=== PATIENT | female | born 2000 | race Caucasian/White ===

== ENCOUNTER 2019-06-21 22:17 | Emergency (ER) | payer OTHER ==
--- NOTE | 2019-06-21 23:07 | ER Document Report ---
ED Medical Screen (RME) - General Chief Complaint: Abdominal Pain Stated Complaint: VAGINAL BLEEDING Time Seen by Provider: 06/21/19 23:06 Mode of Arrival: Ambulatory Information source: Patient Notes: Otherwise healthy 18-year-old female presenting with vaginal bleeding in the setting of possible . Patient reports had a positive test back in April, she has not seen any medical provider for this. Patient reports she has been having vaginal bleeding for the last 3 weeks with increased bleeding tonight after she had intercourse. Patient denies any low abdominal cramping and denies the passage of any clots. Patient is a G1, P0. I have greeted and performed a rapid initial assessment of this patient. A comprehensive ED assessment and evaluation of the patient, analysis of test results and completion of the medical decision making process will be conducted by additional ED providers. I have specifically instructed the patient or family members with the patient to immediately return to any nursing staff should anything change in the patient's condition or with their chief complaint. This medical record was dictated with voice recognizing software. There may be grammatical, syntax errors that are unintended. TRAVEL OUTSIDE OF THE [place] IN LAST 30 DAYS: No Past Medical History - Social History Chew tobacco use (# tins/day): No Frequency of alcohol use: Rare Drug Abuse: None Physical Exam - Vital signs Vitals: Temp Pulse Resp BP Pulse Ox 98.6 F 91 20 126/84 H 99 06/21/19 22:24 06/21/19 22:24 06/21/19 22:24 06/21/19 22:24 06/21/19 22:24 Course - Vital Signs Vital signs: Temp Pulse Resp BP Pulse Ox 98.6 F 91 20 126/84 H 99 06/21/19 22:30 06/21/19 22:30 06/21/19 22:30 06/21/19 22:30 06/21/19 22:30
[2019-06-21 23:51] LABS: ABSOLUTE BASOPHILS # (AUTO) 0.1 10^3/uL (0.0-0.2); ABSOLUTE EOSINOPHILS # (AUTO) 0.1 10^3/uL (0.0-0.6); ABSOLUTE LYMPHOCYTES (AUTO) 3.3 10^3/uL (0.5-4.7); ABSOLUTE MONOCYTES (AUTO) 0.9 10^3/uL (0.1-1.4); ABSOLUTE NEUT (AUTO) 6.9 10^3/uL (1.7-8.2); BASOPHILS % (AUTO) 0.8 % (0-2); EOSINOPHILS % (AUTO) 1.1 % (0-6); HEMATOCRIT 44.6 % (36.0-47.0); HEMOGLOBIN 15.4 g/dL (12.0-15.5); LYMPHOCYTES % (AUTO) 29.1 % (13-45); MEAN CORPUSCULAR HGB CONC 34.5 g/dL (32.0-36.0); MEAN CORPUSCULAR VOLUME 90 fl (80-97); MONOCYTES % (AUTO) 7.8 % (3-13); PLATELET COUNT 150 10^3/uL (150-450); RED BLOOD COUNT 4.96 10^6/uL (3.72-5.28); RED CELL DISTRIBUTION WIDTH 13.2 % (11.5-14.0); SEGMENTED NEUTROPHILS % (AUTO) 61.2 % (42-78); TOTAL CELLS COUNTED % (AUTO) 100 %; WHITE BLOOD COUNT 11.2 10^3/uL (4.0-10.5)
[2019-06-22 00:06] LABS: ALBUMIN 4.6 g/dL (3.5-5.0); ALKALINE PHOSPHATASE 88 U/L (38-126); ANION GAP 9 (5-19); ASPARTATE AMINO TRANSFERASE 24 U/L (14-36); BILIRUBIN,DIRECT 0.1 mg/dL (0.0-0.4); BILIRUBIN,TOTAL 0.6 mg/dL (0.2-1.3); BLOOD UREA NITROGEN 10 mg/dL (7-20); CALCIUM 10.2 mg/dL (8.4-10.2); CARBON DIOXIDE 26 mmol/L (22-30); CHLORIDE 106 mmol/L (98-107); GLUCOSE 90 mg/dL (75-110); POTASSIUM 4.1 mmol/L (3.6-5.0); TOTAL PROTEIN 7.4 g/dL (6.3-8.2)
[2019-06-22 00:07] LABS: APPEARANCE,URINE CLEAR; BILIRUBIN,URINE NEGATIVE (NEGATIVE); COLOR,URINE YELLOW; GLUCOSE, URINE NEGATIVE (NEGATIVE); KETONES,URINE NEGATIVE (NEGATIVE); LEUKOCYTE ESTERASE,URINE NEGATIVE (NEGATIVE); NITRITE,URINE NEGATIVE (NEGATIVE); PROTEIN,URINE NEGATIVE (NEGATIVE); URINE SPECIFIC GRAVITY 1.017; UROBILINOGEN,URINE NEGATIVE mg/dL (<2.0)
--- NOTE | 2019-06-22 02:20 | RADIOLOGY REPORT (SQ) ---
US PELVIS EXAM DATE: 06/22/2019 12:36 AM [employer] [employer]OR HISTORY: Pelvic pain. COMPARISON: None. TECHNIQUE: Grayscale, color Doppler, and spectral Doppler ultrasound images of the pelvis were obtained. FINDINGS: The uterus is anteverted and measures 9 cm in length. There is a gestational sac which measures 2.6 cm. No yolk sac or pole is seen. There is an adjacent 9 mm hypoechoic structure suggestive of subchorionic hematoma. The cervix measures 3 cm in length. IMPRESSION: 1. Intrauterine gestational sac corresponding to 7 weeks 4 days. No yolk sac or pole is seen at this time. Findings may represent early . Recommend short-term follow-up ultrasound imaging. 2. Adjacent hypoechoic structure may represent subchorionic hematoma.
--- NOTE | 2019-06-22 03:24 | ER Document Report ---
ED General - General Chief Complaint: Abdominal Pain Stated Complaint: VAGINAL BLEEDING Time Seen by Provider: 06/21/19 23:06 Mode of Arrival: Ambulatory TRAVEL OUTSIDE OF THE [place] IN LAST 30 DAYS: No - HPI Onset: Other - over the last 3 weeks Onset/Duration: Gradual Quality of pain: No pain Severity: Moderate Pain Level: Denies Associated symptoms: None Exacerbated by: Denies Relieved by: Denies Similar symptoms previously: No Recently seen / treated by doctor: No Notes: 18 year old female with no known PMH here for 3 weeks of vaginal bleeding. The patient says her last period was at the end of March. The patient figured she was having a miscarriage and that it would pass after 2 weeks but she continues to bleed. The patient has some crampy abdominal pains but nothing too intense. The patient denies fevers, chills, sweats, urinary symptoms. The patient has had no care to date. Past Medical History - General Information source: Patient - Social History Smoking Status: Current Every Day Smoker Chew tobacco use (# tins/day): No Frequency of alcohol use: Rare Drug Abuse: None Family History: Reviewed & Not Pertinent Patient has suicidal ideation: No Patient has homicidal ideation: No - Medical History Medical History: Negative - Past Medical History Cardiac Medical History: Reports: None Pulmonary Medical History: Reports: None EENT Medical History: Reports: None Neurological Medical History: Reports: None Endocrine Medical History: Reports: None Renal/ Medical History: Reports: Other - vaginal bleeding for 3 weeks, possibly GI Medical History: Reports: None Musculoskeletal Medical History: Reports None Skin Medical History: Reports None Psychiatric Medical History: Reports: None Infectious Medical History: Reports: None Surgical Hx: Negative Review of Systems - Review of Systems Constitutional: No symptoms reported EENT: No symptoms reported Cardiovascular: No symptoms reported Respiratory: No symptoms reported Gastrointestinal: No symptoms reported Genitourinary: No symptoms reported Female Genitourinary: Vaginal bleeding Musculoskeletal: No symptoms reported Skin: No symptoms reported Hematologic/Lymphatic: No symptoms reported Neurological/Psychological: No symptoms reported Physical Exam - Vital signs Vitals: Temp Pulse Resp BP Pulse Ox 98.6 F 91 20 126/84 H 99 06/21/19 22:24 06/21/19 22:24 06/21/19 22:24 06/21/19 22:24 06/21/19 22:24 - Notes Notes: GENERAL: Well-appearing, well-nourished and in no acute distress. HEAD: Atraumatic, normocephalic. EYES: Pupils equal round and reactive to light, extraocular movements intact, sclera anicteric, conjunctiva are normal. ENT: Nares patent, oropharynx clear without exudates. Moist mucous membranes. NECK: Normal range of motion, supple without lymphadenopathy or JVD. LUNGS: Breath sounds clear to auscultation bilaterally and equal. No wheezes rales or rhonchi. HEART: Regular rate and rhythm without murmurs, rubs or gallops. ABDOMEN: Soft, nontender, normoactive bowel sounds. No guarding, no rebound. No masses appreciated. : Normal External Pelvic Exam. Bleeding from cervix noted. No CMT. No Adnexal Tenderness. EXTREMITIES: Normal range of motion, no pitting or edema. No clubbing or cyanosis. NEUROLOGICAL: Cranial nerves II through XII grossly intact. Normal speech, normal gait. PSYCH: Normal mood, normal affect. SKIN: Warm, Dry, normal turgor, no rashes or lesions noted. Course - Re-evaluation Re-evalutation: 06/22/19 04:22 The patient is at 7 weeks and 4 days by US. She has a beta HCG of 8403. Patient required Rhogam based on her blood type. Patient could be bleeding from a subchorionic hemorrhage as seen on US but she also could have a threatened . Patient told to follow up with [facility] in the next 2 days for repeat Beta HCG. Patient told to start taking vitamins as well. 06/22/19 04:23 - Vital Signs Vital signs: Temp Pulse Resp BP Pulse Ox 98.6 F 91 20 126/84 H 99 06/21/19 22:30 06/21/19 22:30 06/21/19 22:30 06/21/19 22:30 06/21/19 22:30 - Laboratory Result Diagrams: 06/21/19 23:25 06/21/19 23:25 Laboratory results interpreted by me: 06/21/19 06/21/19 06/21/19 23:25 23:25 23:25 WBC 11.2 H Beta HCG, Quant 8403.60 H Urine Blood LARGE H Urine HCG, Qual POSITIVE H Discharge - Discharge Clinical Impression: Threatened in early Condition: Stable Disposition: HOME, SELF-CARE Instructions: Threatened Miscarriage ([facility]) Additional Instructions: Follow up with an [facility]CHOLOG[facility] Doctor for a repeat Beta HCG in the next 2 days. Your Beta HCG was 8403 in the ER today and you are 7 weeks and 4 days by ultrasound.
[2019-06-22 04:12] LABS: RBCS (WET MOUNT) 1+ RBCS SEEN; T.VAGINALIS (WET MOUNT) NO TRICHOMONAS SEEN; WBCS (WET MOUNT) FEW WBCS SEEN; YEAST (WET MOUNT) NO YEAST SEEN
[2019-06-22 04:35] VITALS: BP 134/73
[2019-06-22 05:54] LABS: CHLAM PCR NOT DETECTED (NOT DETECT)
== END 2019-06-22 04:57 | disposition home or self-care (01) ==
LOC: ER 22:17
DX: O20.0 Threatened abortion (principal); O26.891 Other specified pregnancy related conditions, first trimester; R10.9 Unspecified abdominal pain; O99.331 Smoking (tobacco) complicating pregnancy, first trimester; F17.200 Nicotine dependence, unspecified, uncomplicated; Z3A.01 Less than 8 weeks gestation of pregnancy
CPT/HCPCS: 36415; 76817; 80053; 81001; 81025; 84702; 85025; 86850; 86900; 86901; 87210; 87491; 87591; 93976; 99284

== ENCOUNTER 2019-07-05 18:04 | Emergency (ER) | payer OTHER ==
--- NOTE | 2019-07-05 19:30 | ER Document Report ---
ED Medical Screen (RME) - General Chief Complaint: Vaginal Bleeding Stated Complaint: VAGINAL BLEEDING,ABDOMINAL CRAMPS Time Seen by Provider: 07/05/19 19:17 TRAVEL OUTSIDE OF THE [place] IN LAST 30 DAYS: No - HPI Notes: 07/05/19 19:29 18-year-old female para 1 0 who thinks she is approximately 8 weeks presents emergency room for complaints of vaginal bleeding for at least 1 month. [place] know who her primary care provider was and was turned away apparently. Patient was seen in the emergency room on June 22, it did show an intrauterine no pole however she was only 7 weeks. Patient had not followed up since then and states she is still bleeding every day. Denies any nausea vomiting, fever or chills. I have greeted and performed a rapid initial assessment of this patient. A comprehensive ED assessment and evaluation of the patient, analysis of test results and completion of the medical decision making process will be conducted by additional ED providers. PHYSICAL EXAMINATION: GENERAL: Well-appearing, well-nourished and in no acute distress. CV: s1, s2 regular LUNGS: No respiratory distress Musculoskeletal: Normal range of motion NEUROLOGICAL: Normal speech, normal gait. SKIN: Warm, Dry, normal turgor, no rashes or lesions noted. - Related Data Allergies/Adverse Reactions: No Known Allergies Allergy (Verified 07/05/19 19:11) Past Medical History - Social History Chew tobacco use (# tins/day): No Drug Abuse: None Physical Exam - Vital signs Vitals: Temp Pulse Resp BP Pulse Ox 99.0 F 96 16 130/77 H 98 07/05/19 18:10 07/05/19 18:10 07/05/19 18:10 07/05/19 18:10 07/05/19 18:10 Course - Vital Signs Vital signs: Temp Pulse Resp BP Pulse Ox 99.0 F 96 16 130/77 H 98 07/05/19 19:12 07/05/19 18:10 07/05/19 19:12 07/05/19 18:10 07/05/19 19:12
[2019-07-05 20:24] LABS: APPEARANCE,URINE CLEAR; BILIRUBIN,URINE NEGATIVE (NEGATIVE); COLOR,URINE YELLOW; GLUCOSE, URINE NEGATIVE (NEGATIVE); KETONES,URINE NEGATIVE (NEGATIVE); LEUKOCYTE ESTERASE,URINE NEGATIVE (NEGATIVE); NITRITE,URINE NEGATIVE (NEGATIVE); PROTEIN,URINE NEGATIVE (NEGATIVE); URINE SPECIFIC GRAVITY 1.019; UROBILINOGEN,URINE NEGATIVE mg/dL (<2.0)
[2019-07-05 20:30] LABS: ABSOLUTE BASOPHILS # (AUTO) 0.1 10^3/uL (0.0-0.2); ABSOLUTE EOSINOPHILS # (AUTO) 0.1 10^3/uL (0.0-0.6); ABSOLUTE LYMPHOCYTES (AUTO) 2.6 10^3/uL (0.5-4.7); ABSOLUTE MONOCYTES (AUTO) 0.8 10^3/uL (0.1-1.4); ABSOLUTE NEUT (AUTO) 7.7 10^3/uL (1.7-8.2); BASOPHILS % (AUTO) 0.6 % (0-2); EOSINOPHILS % (AUTO) 0.8 % (0-6); HEMATOCRIT 46.6 % (36.0-47.0); LYMPHOCYTES % (AUTO) 22.9 % (13-45); MEAN CORPUSCULAR HEMOGLOBIN 30.9 pg (27.0-33.4); MEAN CORPUSCULAR HGB CONC 34.4 g/dL (32.0-36.0); MEAN CORPUSCULAR VOLUME 90 fl (80-97); MONOCYTES % (AUTO) 7.1 % (3-13); PLATELET COUNT 170 10^3/uL (150-450); RED CELL DISTRIBUTION WIDTH 13.6 % (11.5-14.0); SEGMENTED NEUTROPHILS % (AUTO) 68.6 % (42-78); TOTAL CELLS COUNTED % (AUTO) 100 %; WHITE BLOOD COUNT 11.2 10^3/uL (4.0-10.5)
[2019-07-05 20:46] LABS: ALBUMIN 4.7 g/dL (3.5-5.0); ALKALINE PHOSPHATASE 99 U/L (38-126); ANION GAP 11 (5-19); ASPARTATE AMINO TRANSFERASE 25 U/L (14-36); BILIRUBIN,DIRECT 0.1 mg/dL (0.0-0.4); BILIRUBIN,TOTAL 0.7 mg/dL (0.2-1.3); BLOOD UREA NITROGEN 12 mg/dL (7-20); CALCIUM 10.1 mg/dL (8.4-10.2); CARBON DIOXIDE 27 mmol/L (22-30); CHLORIDE 104 mmol/L (98-107); GLUCOSE 87 mg/dL (75-110); TOTAL PROTEIN 7.5 g/dL (6.3-8.2)
--- NOTE | 2019-07-05 21:28 | RADIOLOGY REPORT (SQ) ---
EXAM DESCRIPTION: US TRANSVAGINAL COMPLETED DATE/TME: 07/05/2019 19:23 CLINICAL HISTORY: 18 years, Female, vaginal bleeding for 2+ weeks, ?miscarriage COMPARISON: Prior study from 06/22/2019 TECHNIQUE: Axial 2-D grayscale images of the pelvis were acquired. Doppler was utilized. LIMITATIONS: None. FINDINGS: Uterus measures 7.7 x 4.0 x 6.2 cm in size. It contains an irregular gestational sac measuring 1.57 cm and average diameter (estimated gestational age of six weeks and three days). However, no pole or yolk sac is identified. In addition, there is an area of heterogenous hypoechogenicity located immediately adjacent to the gestational sac measuring up to 2.4 x 1.2 cm in size, increased from the previous examination dated 06/22/2019. The more focal area of hypoechogenicity most likely corresponds to a more chronic appearing subchorionic hematoma; whereas, the more heterogenous hypoechoic area is likely more acute. Cervix is closed, measuring 2.4 cm in length. However, a small amount of fluid is noted within the endocervical canal. Neither ovary was visualized. IMPRESSION: Intrauterine gestational sac, as above described. No pole or yolk sac is identified at this time. Findings may continue to correspond to an early though given the size of the gestational sac and absence of embryo, failure is a possibility. Continued surveillance is suggested. Persistent subchorionic hematoma about the periphery of the gestational sac, increased in size and demonstrating more acute components when compared to the previous study dated 06/22/2019. copyright 2010 [employer]- All Rights Reserved
--- NOTE | 2019-07-06 00:28 | ER Document Report ---
ED General - General Chief Complaint: Vaginal Bleeding Stated Complaint: VAGINAL BLEEDING,ABDOMINAL CRAMPS Time Seen by Provider: 07/05/19 19:17 Notes: 18-year-old female G1, P0 presents the emergency department complaining of positive test and vaginal bleeding for the past month and a half. Patient states that she is somewhere between 7 and 9 weeks . States that about 2 weeks after positive test she started bleeding and has now been having heavier bleeding for the past week. States that she was seen in the emergency department approximately 2 weeks ago and diagnosed with a threatened miscarriage. Has been trying to get follow-up through [facility] system on [address] but has been unable to get in. Patient is not sure what she supposed to do next. Patient states that her clots have been getting heavier, largest one is slightly larger than a quarter. She is not bleeding through more than 1 pad per hour. She is not having dizziness, lightheadedness or shortness of breath. Patient denies foul-smelling discharge or fever. Admits lower abdominal cramping that feels like her period. TRAVEL OUTSIDE OF THE [place] IN LAST 30 DAYS: No - Related Data Allergies/Adverse Reactions: No Known Allergies Allergy (Verified 07/05/19 19:11) Past Medical History - General Information source: Patient - Social History Smoking Status: Current Every Day Smoker Chew tobacco use (# tins/day): No Frequency of alcohol use: None Drug Abuse: None Family History: Reviewed & Not Pertinent Patient has suicidal ideation: No Patient has homicidal ideation: No Review of Systems - Review of Systems Constitutional: No symptoms reported Gastrointestinal: See HPI, Abdominal pain - Low abdominal pain.. denies: Nausea - Resolved. Genitourinary: No symptoms reported Female Genitourinary: See HPI -: Yes All other systems reviewed and negative Physical Exam - Vital signs Vitals: Temp Pulse Resp BP Pulse Ox 99.0 F 96 16 130/77 H 98 07/05/19 18:10 07/05/19 18:10 07/05/19 18:10 07/05/19 18:10 07/05/19 18:10 Interpretation: Normal - Notes Notes: GENERAL: Alert, interacts well. No acute distress. HEAD: Normocephalic, atraumatic EYES: Pupils equal, round and reactive to light, extraocular movements intact. ENT: Oral mucosa moist, tongue midline. NECK: Full range of motion, supple, trachea midline. LUNGS: Clear to auscultation bilaterally, no wheezes, rales or rhonchi, no respiratory distress. HEART: Regular rate and rhythm, no murmurs, gallops, rubs. ABDOMEN: Soft, minimal lower abdominal tenderness to palpation, nondistended, bowel sounds present in all 4 quadrants. EXTREMITIES: Moves all 4 extremities spontaneously, no edema, radial and dorsalis pedis pulses 2/4 bilaterally. No cyanosis. NEUROLOGICAL: Alert and oriented x3, normal speech. PSYCH: Normal mood, normal affect. SKIN: Warm, Dry, normal turgor, no rashes or lesions noted. Course - Re-evaluation Re-evalutation: 07/06/19 00:49 CBC shows leukocytosis with a white blood cell count of 11.2, hemoglobin actually slightly elevated at 16.0, CMP unremarkable, quantitative beta-hCG significantly decreased from 06/21 when it was 8403, it is now 502. Urinalysis shows large blood, this is likely contaminated. Transvaginal ultrasound shows both an area of chronic subchorionic hemorrhage and what appears to be a more acute area of subchorionic hemorrhage, there is an irregular gestational sac measuring 1.57 cm, estimated gestational age of 6 weeks and 3 days. No pole or yolk sac. This is consistent with a miscarriage especially since the gestational sac was larger when she had an ultrasound back on the fifth. Patient has no signs of endometritis, there is no anemia. There is no life- threatening blood loss as she has a normal hemoglobin, is not hypotensive and is not bleeding through more than 1 pad per hour. Discussed case with Dr. yusuf, agrees with giving RhoGam and starting Cytotec. Patient is agreeable to trial of medications first before proceeding to a D&C. Patient will be given Cytotec 200 mcg every 6 hours by mouth for the next 4 days. Patient will be prescribed [place] 10 tablets to help with pain that is not controlled by Motrin. Patient will be discharged to home. - Vital Signs Vital signs: Temp Pulse Resp BP Pulse Ox 99.0 F 96 16 130/77 H 98 07/05/19 19:12 07/05/19 18:10 07/05/19 19:12 07/05/19 18:10 07/05/19 19:12 - Laboratory Result Diagrams: 07/05/19 19:53 07/05/19 19:53 Laboratory results interpreted by me: 07/05/19 07/05/19 07/05/19 19:53 19:53 19:53 WBC 11.2 H Hgb 16.0 H Beta HCG, Quant 502.90 H Urine Blood LARGE H Discharge - Discharge Clinical Impression: Miscarriage Condition: Stable Disposition: HOME, SELF-CARE Additional Instructions: Miscarriage Impending You have been evaluated for a possible miscarriage. At this time, it appears that the fetus has stopped growing. A miscarriage occurs when the fetus is abnormal. There is no medicine or treatment to prevent it. If bleeding is not severe, and if your pain can be controlled with medicine, you could complete the miscarriage at home. If that's not practical, or if the miscarriage doesn't progress spontaneously, we will arrange for a D&C procedure. You should rest in bed. Do not douche or have sex for at least a week after the bleeding stops, or until OK'd by the doctor. Be sure to follow up with your doctor. Call the doctor or return for re- examination if there is an increase in bleeding or cramping, extreme weakness, fainting, fever, or passage of tissue. We are giving you a medication to help the miscarriage go faster. We will give you a prescription for Cytotec 200 mcg every 6 hours for the next 5 days. Please take ibuprofen 800 mg every 8 hours as needed for pain. If this does not control your pain you may take 1 of the [place] every 4-6 hours as needed for pain as well. You [facility] follow[facility] with [facility] or you may follow-up with [facility]. Prescriptions: Hydrocodone/Acetaminophen [[place] 5-325 mg Tablet] 1 tab PO Q6HP PRN #10 tablet PRN Reason: For Breakthrough Pain Misoprostol [Cytotec 0.2 mg Tablet] 0.2 mg PO Q6H #20 tablet Referrals: EDUIN PELAYO DO [ACTIVE STAFF] - Follow up as needed IMANI AGUIRRE DO [NO LOCAL MD] - Follow up as needed (you may call [facility] to follow-up with any of their OBs.)
[2019-07-06] MEDS ORDERED: MISOPROSTOL 0.2 MG TABLET PO ONE (00:42)
[2019-07-06] MEDS ORDERED: KETOROLAC TROMETHAMINE 60 MG/2 ML SDV IM ONE (00:42)
[2019-07-06 03:43] VITALS: BP 127/75
== END 2019-07-06 03:43 | disposition home or self-care (01) ==
LOC: ER 18:04
DX: O03.9 Complete or unspecified spontaneous abortion without complication (principal); R10.9 Unspecified abdominal pain; O99.331 Smoking (tobacco) complicating pregnancy, first trimester; Z3A.01 Less than 8 weeks gestation of pregnancy
CPT/HCPCS: 36415; 76817; 80053; 81001; 84702; 85025; 86850; 86900; 86901; 93976; 96372; 99284; J1885; J2790